=== PATIENT | female | born 1975 | race Caucasian/White ===

== ENCOUNTER 2018-01-14 06:26 | Emergency (ER) | payer OTHER ==
[2018-01-14] MEDS ORDERED: Ketorolac Tromethamine 30 MG/ML VIAL ONE (06:51)
[2018-01-14] MEDS ORDERED: methylPREDNISolone Sod Succ/PF 125 MG/2 ML VIAL ONE (06:51)
[2018-01-14] MEDS ORDERED: diphenhydrAMINE 50 MG/ML VIAL ONE ×2 (06:51→06:52)
[2018-01-14] MEDS ORDERED: Metoclopramide HCl 10 MG/2 ML VIAL ONE (06:51)
== END 2018-01-14 07:30 | disposition home or self-care (01) ==
LOC: MADERS 06:26
DX: G43.909 Migraine, unspecified, not intractable, without status migrainosus (principal)
CPT/HCPCS: 96374; 96375; J1200; J1885; J2765; J2930